=== PATIENT | male | born 1940 | race Caucasian/White ===

== ENCOUNTER 2018-07-20 14:11 | Day surgery (SDC) | payer MEDICARE ==
[~2018-07-20] VITALS: Ht 170.2 cm; Wt 80.0 kg
[~2018-07-20 14:11] MED LIST: ERGO400 PO; Hydrocodone-Ap1 EA23 PO; LITH300C PO; LORA1 PO; OLAN10 PO; OLANZAPINE10 MG PO; PARO20 PO; PARO30 PO; Paxil40 MG; SIMV40 PO; Simvastatin40 MG PO; TAMS.4ER PO; TAMSULOSIN HCL0.4 MG PO
== END 2018-07-20 16:45 | disposition home or self-care (01) ==
LOC: ORSCSDS 14:11
PROVIDERS: Podiatrist Foot & Ankle Surgery
PROC: 0LBW0ZZ Excision of Left Foot Tendon, Open Approach (ICD-10-PCS; principal; 2018-07-20 15:30)
PROC: 0QBP0ZZ Excision of Left Metatarsal, Open Approach (ICD-10-PCS; principal; 2018-07-20 15:30)
DX: M67.472 Ganglion, left ankle and foot (principal); M19.072 Primary osteoarthritis, left ankle and foot; E78.5 Hyperlipidemia, unspecified; F41.9 Anxiety disorder, unspecified; F32.9 Major depressive disorder, single episode, unspecified; Z87.891 Personal history of nicotine dependence; Z79.899 Other long term (current) drug therapy
CPT/HCPCS: J0690; J2250; J2405; J3010; J7120

== ENCOUNTER 2019-09-22 11:53 | Inpatient (IN) | payer MEDICARE ==
[~2019-09-22] VITALS: Ht 170.2 cm; Wt 79.5 kg
[~2019-09-22 11:53] MED LIST changes: +CLON.5 PO; +DULO60 PO; +IBUP600 PO; +Zocor20 MG PO
--- NOTE | 2019-09-23 09:03 | NUR ---
Ambulatory in Day Surgery History, Chart, Medications and Allergies reviewed before start of procedure.Patient confirms NPO status and agrees with scheduled surgery. Lungs clear T/O to Auscultation.
[2019-09-23] MEDS ORDERED: NEBI5 PO (09:20)
--- NOTE | 2019-09-23 10:06 | NUR ---
talked with dr zimmerman annesthesiologist. will remove glasses, dentures, and hearing aids before taking to surgery and place in pacu
--- NOTE | 2019-09-23 10:28 | NUR ---
DENTURES LEFT IN PER DR ALEGRIA HEARING AIDS AND GLASSES PLACED IN PACU.
--- NOTE | 2019-09-23 12:05 | NUR ---
09/23/19 1205 Zunilda Turcios ALL COUNTS CORRECT.
--- NOTE | 2019-09-23 19:26 | NUR ---
SHIFT SUMMARY PATIENT HAS DENIED NEEDING PAIN MEDICATION (01/03.) VSS. R HIP DRESSING D&I. CIRC CHECKS WNL. PT UP TO BR W/FWW, GB, SBA, THEN TO CHAIR. TAKING PO WELL W/O C/O. VOIDING. PAS AND ICE IN PLACE. FAMILY AT BEDSIDE. NO ACUTE CHANGES OR C/O AT THIS TIME.
[2019-09-24 04:14] LABS: BASOPHILS ABSOLUTE AUTO 0.01 K/mm3 (0.00-0.23); BASOPHILS PERCENT AUTO 0 % (0-2); EOSINOPHILS ABSOLUTE AUTO 0.02 K/mm3 (0.00-0.68); EOSINOPHILS PERCENT AUTO 0 % (0-6); Hematocrit 40.4 % (37.0-53.0); Hemoglobin 13.1 g/dL (13.5-17.5); IMMATURE GRAN ABSOLUTE AUTO 0.04 K/mm3 (0.00-0.10); IMMATURE GRAN PERCENT AUTO 0 % (0-1); LYMPHOCYTES ABSOLUTE AUTO 1.41 K/mm3 (0.84-5.20); LYMPHOCYTES PERCENT AUTO 11 % (21-46); MONOCYTES ABSOLUTE AUTO 0.98 K/mm3 (0.16-1.47); MONOCYTES PERCENT AUTO 7 % (4-13); Mean Corpuscular HGB 29.4 pg (26.0-34.0); Mean Corpuscular HGB Conc 32.4 g/dL (31.5-36.5); Mean Corpuscular Volume 91 fL (80-100); NEUTROPHILS ABSOLUTE AUTO 10.86 K/mm3 (1.96-9.15); NEUTROPHILS PERCENT AUTO 81 % (41-73); Platelet Count 190 K/mm3 (150-400); RDW Coefficient Variation 13.2 % (11.7-14.2); RDW Standard Deviation 44.3 fL (35.1-46.3); Red Blood Cell Count 4.45 M/mm3 (4.30-5.90); White Blood Cell Count 13.32 K/mm3 (4.00-11.30)
[2019-09-24 04:32] LABS: Anion Gap 5 mmol/L (6-16); Blood Urea Nitrogen 21 mg/dL (8-24); Bun/Creatinine Ratio 21.2 (12.0-20.0); CO2, Blood 28 mmol/L (21-32); Calcium, Blood 8.3 mg/dL (8.5-10.1); Chloride, Blood 105 mmol/L (98-108); Creatinine, Blood 0.99 mg/dL (0.60-1.20); Glomerular Filtration Rate >60 (60-); Glucose, Blood 116 mg/dL (70-99); Potassium, Blood 4.4 mmol/L (3.5-5.5); Sodium, Blood 138 mmol/L (136-145)
--- NOTE | 2019-09-24 04:58 | NUR ---
SHIFT SUMMARY PT HAS BEEN UP IN CHAIR DURING THE SHIFT AND REQUESTED TO SLEEP IN CHAIR RATHER THAN BED. PT DID WALK DOWN THE HALLWAY AND TOLERATED WELL. REPORTS LITTLE TO NO PAIN. DRESSING TO R HIP CDI. ASSISTED WITH ADL'S PRN.
--- NOTE | 2019-09-24 07:50 | NUR ---
JANETH BY TO SEE PT DRESSING TO HIP CDI PT REPORTS MIN PAIN 1/0 SITTING UP IN CHAIR
--- NOTE | 2019-09-24 09:18 | NUR ---
PT WORKING WITH PHYSICAL THERAPY REQ PAIN MEDS PO TYLENOL ONLY ALSO GAVE PT HIS ROUTINE MEDS
[2019-09-24] MEDS ORDERED: ASPI81CH PO (10:09)
[2019-09-24] MEDS ORDERED: Percocet 5-3251 EACH PO (10:09)
[2019-09-24] MEDS ORDERED: CELE100 PO (10:10)
--- NOTE | 2019-09-24 10:20 | NUR ---
DISCHARGE INSTRUCTIONS REVIEWED WITH PT VERBALIZED RX GIVEN WITH DRESSING SUPPLIES NO ACUTE CHANGES PT DRESSED
--- NOTE | 2019-09-24 11:00 | NUR ---
WC ESCORT TO CAR
== END 2019-09-24 10:30 | disposition home or self-care (01) | DRG 470 ==
LOC: SURS 09-23 08:27 → PRE IP 09-23 10:00 → SURS 09-23 13:24
PROVIDERS: ADMIT Orthopaedic Surgery
PROC: 0SR904A Replacement of Right Hip Joint with Ceramic on Polyethylene Synthetic Substitute, Uncemented, Open Approach (ICD-10-PCS; principal; 2019-09-23 10:00)
DX: M16.11 Unilateral primary osteoarthritis, right hip (principal); I10 Essential (primary) hypertension; J44.9 Chronic obstructive pulmonary disease, unspecified; E78.5 Hyperlipidemia, unspecified; G89.29 Other chronic pain; F41.9 Anxiety disorder, unspecified; F32.9 Major depressive disorder, single episode, unspecified; K58.9 Irritable bowel syndrome, unspecified; Z85.46 Personal history of malignant neoplasm of prostate
CPT/HCPCS: 36415; 72170; 80048; 85025; 86850; 86870; 86900; 86901; 86905; 88300; 97110; 97116; 97162; 97530; C1776; J0171; J0690; J0735; J1100; J1885; J2250; J2370; J2405; J2704; J2795; J3010; J7120

== ENCOUNTER 2021-06-15 11:34 | Day surgery (SDC) | payer MEDICARE ==
[~2021-06-15] VITALS: Ht 170.2 cm; Wt 74.6 kg
[~2021-06-15 11:34] MED LIST changes: +ASPI81CH PO; +CELE100 PO; +Cialis20 MG PO; +Cymbalta20 MG PO; +METO25ER PO; +NEBI5 PO; +Percocet 5-3251 EACH PO
== END 2021-06-15 13:50 | disposition home or self-care (01) ==
LOC: ORSCSDS 11:34
PROVIDERS: Internal Medicine Gastroenterology
PROC: 0DBL8ZX Excision of Transverse Colon, Via Natural or Artificial Opening Endoscopic, Diagnostic (ICD-10-PCS; principal; 2021-06-15 12:45)
PROC: 0DBN8ZX Excision of Sigmoid Colon, Via Natural or Artificial Opening Endoscopic, Diagnostic (ICD-10-PCS; principal; 2021-06-15 12:45)
PROC: 0DBH8ZX Excision of Cecum, Via Natural or Artificial Opening Endoscopic, Diagnostic (ICD-10-PCS; principal; 2021-06-15 12:45)
DX: Z12.11 Encounter for screening for malignant neoplasm of colon (principal); Z86.010 Personal history of colon polyps; Z80.0 Family history of malignant neoplasm of digestive organs; D12.0 Benign neoplasm of cecum; D12.3 Benign neoplasm of transverse colon; K63.5 Polyp of colon; K57.30 Diverticulosis of large intestine without perforation or abscess without bleeding; K64.8 Other hemorrhoids; Z87.891 Personal history of nicotine dependence; Z79.899 Other long term (current) drug therapy
CPT/HCPCS: 88305; J2704; J7120